=== PATIENT | female | born 1975 | race Two or more races ===

== ENCOUNTER 2023-06-21 12:52 | Emergency (ER) | payer MEDICAID, OTHER ==
[~2023-06-21] VITALS: Ht 167.6 cm; Wt 91.7 kg
[2023-06-21 14:27] VITALS: BP 118/56; PULSE 70; RESP 18; TEMP 97.8; O2SAT 98
[2023-06-21] MEDS ORDERED: methylPREDNISolone SOD SUCC 125 MG/2 ML VL IM ONE (14:30)
[2023-06-21] MEDS ORDERED: DOXY-286 PO (14:41)
[2023-06-21] MEDS ORDERED: PRED20TA2 PO (14:41)
== END 2023-06-21 15:03 | disposition home or self-care (01) ==
LOC: ER 12:52
DX: L03.115 Cellulitis of right lower limb (principal); Z88.0 Allergy status to penicillin; Z88.8 Allergy status to other drugs, medicaments and biological substances
CPT/HCPCS: 96372; 99283; J2930